=== PATIENT | female | born 1975 ===

== ENCOUNTER 2022-12-13 04:01 | Observation (INO) ==
[2022-12-13] MEDS ORDERED: ACETAMINOPHEN 325 MG TABLET PO PRN (04:04)
[2022-12-13] MEDS ORDERED: ONDANSETRON 4 MG/2 ML VIAL IV PRN ×2 (04:06→12:33)
[2022-12-13] MEDS ORDERED: HYDROcodone/APAP 5/325MG TABLET PO PRN (04:07)
[2022-12-13] MEDS ORDERED: KETOROLAC 30 MG/ML VIAL IV PRN (04:08)
[2022-12-13] MEDS ORDERED: HYDROmorphone 0.5 MG/0.5 ML SYRINGE IV PRN (06:04)
--- NOTE | 2022-12-13 06:09 | Internal Med History&Physical ---
HPI History of Present Illness Patient information: Note initiated : 12/13/22 at 6:05 am Service Date, if different from initiated Date: [] Patient: Cindy Becker 47 y/o F admitted on 12/13/22 for acute Diverticitis, obstructing Stones. Chief Complaint: [] History of present illness: Ms. Becker is a 47 year old female with a history of type 2 diabetes mellitus, rheumatoid arthritis on prednisone methotrexate and Actemra, GERD, obesity who presented to the [facility] for right flank pain and dysuria. The patient was found to have a UTI. A CT abdomen pelvis was performed which showed several right ureteral stones and right hydronephrosis with perinephric stranding. The patient was also noted to have findings suggestive of sigmoid diverticulitis. Urology consult was not available at that hospital therefore the patient was transferred to [facility] for urgent urology evaluation and intervention. Review of systems Constitutional: no fever, fatigue, or weight loss Eyes: no vision changes or pain Cardiovascular: no chest pain, no palpitations Respiratory: no cough or dyspnea Gastrointestinal: Mild left lower quadrant pain, no nausea, vomiting, or diarrhea Genitourinary: Positive for right flank pain and dysuria Musculoskeletal: no arthralgia or myalgia Integumentary: no skin lesion or wound Neurological: no focal weakness or numbness Psychiatric: no anxiety or depression Physical exam Head: Atraumatic, normal inspection. Eyes: normal appearance, no scleral icterus. Neck: full ROM Respiratory: no respiratory distress. Cardiovascular: normal rate and rhythm, S1, S2. GI/Abdominal: Obesely distended, soft, mild tenderness in the left lower quadrant, no rebound. : Positive for right flank tenderness. Extremities: full range of motion, nontender. Neurological: CN II-XII intact, intact motor, intact sensation. Psychiatric: normal mood. Skin: warm, normal color PFSH PFSH All Active Problems (Updated 12/13/22 @ 10:14 by Ronnie Bautista MD) Diabetes mellitus (Acute) Kidney stones (Acute) Rheumatoid arthritis (Acute) Right flank pain (Acute) Right ureteral calculus (Acute) Sigmoid diverticulitis (Acute) Hydronephrosis, right (Acute) Urinary tract infection (Acute) Surgical History (Updated 12/13/22 @ 10:04 by Ronnie Bautista MD) Status post laser lithotripsy of ureteral calculus Social History smoking status: Former smoker MEDS/ALLERGIES Home Medications and Allergies Home Medications Medication Instructions Recorded Confirmed Type atorvastatin 10 mg tablet 10 mg PO QDAY 12/13/22 12/13/22 History cholecalciferol (vitamin D3) 125 125 mcg PO QDAY 12/13/22 12/13/22 History mcg (5,000 unit) capsule fexofenadine 180 mg tablet 180 mg PO QDAY 12/13/22 12/13/22 History glimepiride 4 mg tablet 4 mg PO BID 12/13/22 12/13/22 History hydrocodone 5 mg-acetaminophen 325 1 tab PO Q4 12/13/22 12/13/22 History mg tablet losartan 100 mg tablet 100 mg PO QDAY 12/13/22 12/13/22 History magnesium oxide 400 mg PO QDAY 12/13/22 12/13/22 History tocilizumab 162 mg/0.9 mL mg subcut WEEKLY 12/13/22 History subcutaneous pen injector (Actemra ACTPen) Allergies Allergy/AdvReac Type Severity Reaction Status Date / Time aspirin AdvReac Severe Hives, Verified 12/13/22 05:50 stomach ache codeine AdvReac Severe Hives, Verified 12/13/22 05:50 stomach ache gold sodium thiomalate AdvReac Severe Hives, Verified 12/13/22 05:50 stomach ache EXAM Constitutional Vitals: Temp Pulse Resp BP Pulse Ox O2 Del Method 97.9 F 96 H 15 138/70 97 Room Air 12/13/22 05:10 12/13/22 05:10 12/13/22 05:10 12/13/22 05:10 12/13/22 05:10 12/13/22 05:10 A/P Narrative A/P Narrative: Assessment: 47 year old female with a history of ureteral stone previously treated with lithotripsy, type 2 diabetes mellitus, rheumatoid arthritis, GERD, obesity who presented to the [facility] ED for right flank and suprapubic pain. She was found to have a UTI and several right ureteral stones causing right hydronephrosis and right perinephric stranding seen on CT scan. The CT scan also showed signs of uncomplicated sigmoid diverticulitis. The patient was transferred to [facility] for urgent evaluation by urology and treatment of the UTI. #Complicated urinary tract infection probably pyelonephritis #Obstructing right ureteral stones #Right hydronephrosis #Rheumatoid arthritis on prednisone, methotrexate, and Actemra #Type 2 diabetes mellitus, insulin-dependent #GERD #Uncomplicated sigmoid diverticulitis #History of ureteral stones s/p lithotripsy #Obesity BMI 40 Plan -Ceftriaxone 2 gm IV Q24 hrs. -IV fluid. -UA w/ reflex to culture. -Admission CBC w/ diff and chemistry panel. -Monitor vitals, the patient develops hypotension bolus IV fluids and administer stress dose steroids. -Analgesics as needed. -Lantus 10 units at bedtime and correction Humalog SSI medium dose. -Medication reconciliation, hold Actemra until UTI has been fully treated. -NPO for procedure. -Urology consult. -DVT prophylaxis: Lovenox SQ -CODE STATUS: Full -Disposition: Home when stable. Follow-up with urology in clinic. Time Spent With Patient Time: Total time spent is greater than 50% in coordination of care (as documented) at patient's floor/unit and/or counseling patient:
[2022-12-13] MEDS ORDERED: 0.9 % SODIUM CHLORIDE 1,000 ML IV SCH (06:15)
[2022-12-13] MEDS ORDERED: HYDROmorphone 0.5 MG/0.5 ML SYRINGE ONE (06:39)
[2022-12-13] MEDS ORDERED: DEXTROSE 31 GM ORAL.SUSP PO PRN (07:33)
[2022-12-13] MEDS ORDERED: DEXTROSE 50% 50 ML VIAL IV PRN (07:33)
[2022-12-13 07:34] LABS: Basophils # (Auto) 0.03 K/mcL (0.00-0.30); Basophils % (Auto) 0.3 % (0.0-2.0); Eosinophils # (Auto) 0.36 K/mcL (0.00-0.70); Eosinophils % (Auto) 3.1 % (0.0-7.0); Hematocrit 38.8 % (34.1-44.9); Hemoglobin 11.5 g/dL (11.2-15.7); Lymphocytes % (Auto) 14.4 % (15.5-49.0); Mean Cell Volume 85.5 fL (80.0-100.0); Mean Corpuscular HGB Conc 29.6 g/dL (31.0-36.0); Mean Platelet Volume 11.3 fL (8.8-12.5); Monocytes % (Auto) 4.2 % (1.0-12.0); Neutrophils % (Auto) 77.6 % (38.0-78.0); Platelet Count 257 K/mcL (140-440); RBC 4.54 M/mcL (3.59-5.38); Red Cell Distribution Width 15.6 % (11.5-14.5); WBC 11.8 K/mcL (4.5-11.0)
[2022-12-13] MEDS ORDERED: cefTRIAXone 2 GM in DEXTROSE 5% IN WATER 50 ML IV SCH (08:00)
[2022-12-13 08:01] LABS: ALT/SGPT 27 U/L (<40); AST/SGOT 52 U/L (<32); Albumin 3.7 gm/dL (3.2-5.2); Albumin/Globulin Ratio 1.4 (1.0-2.3); Alkaline Phosphatase 128 U/L (39-117); Bilirubin,Direct < 0.2 mg/dL (0-0.3); Bilirubin,Total 0.5 mg/dL (0.1-1.0); Blood Urea Nitrogen 12 mg/dL (6-20); Calcium 8.9 mg/dL (8.6-10.4); Carbon Dioxide 22 mmol/L (22-30); Chloride 104 mmol/L (96-108); Globulin 2.7 gm/dL (2.2-3.7); Glomerular Filtration Rate 67; Glucose 195 mg/dL (70-105); Lactate Dehydrogenase 254 U/L (135-225); Phosphorous 3.5 mg/dL (2.5-4.5); Triglycerides 286 mg/dL (<150); Uric Acid 3.3 mg/dL (2.5-8.0)
--- NOTE | 2022-12-13 10:15 | Urology Consult Note ---
HPI Date of Consult Consult Date: 12/13/22 Requesting physician: Randolph Bell Consult Narrative Chief complaint: Right flank pain, urinary urgency and frequency dysuria, Reason for consult: Right renal and ureteral stones History of present illness: Cindy is a 47-year-old woman who was seen in the [facility] emergency room last night with complaints of the acute onset of right flank pain, dysuria, and urinary urgency and frequency. Noncontrast CT scan was obtained in the ER at [facility] which revealed 3 adjacent stones within the proximal right ureter measuring 3 mm, 3 mm and 2 mm. There was moderate proximal right hydroureteronephrosis and right perinephric stranding. There were multiple nonobstructing stones in the right upper pole. There were also multiple nonobstructing stones in the left upper pole. There were no bladder stones. Additionally the patient was also diagnosed with acute sigmoid diverticulitis. Labs obtained in the ER revealed a white blood cell count of 12.2. Serum creatinine was within normal limits at 0.9. Urinalysis showed positive nitrites, 49 red blood cells, 85 white blood cells, and few bacteria. There was no urology available for consultation at [facility] and the patient was transferred to our hospital and admitted to our hospitalist service for both diverticulitis and the obstructing stones The patient has a history of diabetes mellitus and rheumatoid arthritis for which she is on medication causing an immunocompromise state. There was concern for pyelonephritis. Today the patient is resting comfortably in bed. She continues to have right flank pain. She looks unwell. She reports a known history of kidney stones. She has previously undergone laser lithotripsy. She lives in [place], [place] and has a urologist at home. Patient was started on Rocephin by the hospitalist service. cc:: CC: Randolph Bell MD Review of Systems All systems: reviewed and no additional remarkable complaints except as stated Constitutional Constitutional: Present fatigue and malaise Genitourinary Genitourinary: Present as per HPI, dysuria, flank pain, urinary frequency and urinary urgency PFSH PFSH All Active Problems (Updated 12/13/22 @ 10:14 by Ronnie Bautista MD) Urinary tract infection (Acute) Hydronephrosis, right (Acute) Sigmoid diverticulitis (Acute) Right ureteral calculus (Acute) Right flank pain (Acute) Rheumatoid arthritis (Acute) Kidney stones (Acute) Diabetes mellitus (Acute) Surgical History (Updated 12/13/22 @ 10:04 by Ronnie Bautista MD) Status post laser lithotripsy of ureteral calculus Social History smoking status: Former smoker Narrative Patient History Narrative: Narrative: Medical/Surgical/Family History All Active Problems (Updated 12/13/22 @ 10:14 by Ronnie Bautista MD) Urinary tract infection (Acute) Hydronephrosis, right (Acute) Sigmoid diverticulitis (Acute) Right ureteral calculus (Acute) Right flank pain (Acute) Rheumatoid arthritis (Acute) Kidney stones (Acute) Diabetes mellitus (Acute) Surgical History (Updated 12/13/22 @ 10:04 by Ronnie Bautista MD) Status post laser lithotripsy of ureteral calculus Social History Smoking Status: Former smoker MEDS/ALLERGIES Home Medications and Allergies Allergies Allergy/AdvReac Type Severity Reaction Status Date / Time aspirin AdvReac Severe Hives, Verified 12/13/22 05:50 stomach ache codeine AdvReac Severe Hives, Verified 12/13/22 05:50 stomach ache gold sodium thiomalate AdvReac Severe Hives, Verified 12/13/22 05:50 stomach ache Physical Examination Vital Signs Vital signs: Temp Pulse Resp BP Pulse Ox O2 Del Method 97.9 F 96 H 15 138/70 97 Room Air 12/13/22 05:10 12/13/22 05:10 12/13/22 05:10 12/13/22 05:10 12/13/22 05:10 12/13/22 05:10 General physical appearance General physical exam: well developed, well nourished, no distress and moderate pain ENT ENT exam: no hearing loss Head Head exam IM: Present atraumatic, normal inspection and normocephalic Neck Neck exam: trachea midline Cardiovascular Cardiovascular exam IM: Present normal rate and rhythm Respiratory Respiratory exam: normal respiratory effort and clear to auscultation Musculoskeletal Musculoskeletal: Present other (Not assessable as the patient is lying in bed) Psychiatric Psychiatric: Present oriented to time, oriented to person, oriented to place and speech is normal Results Labs 12/13/22 06:41 12/13/22 06:41 Labs: Abnormal lab results 12/13/22 12/13/22 Range/Units 06:41 06:41 WBC 11.8 H (4.5-11.0) K/mcL MCH 25.3 L (26.0-34.0) pg MCHC 29.6 L (31.0-36.0) g/dL RDW 15.6 H (11.5-14.5) % Lymph % (Auto) 14.4 L (15.5-49.0) % Absolute Neutrophils 9.15 H (1.80-8.00) K/mcL Glucose 195 H (70-105) mg/dL GGT 85 H (5-36) U/L AST 52 H (<32) U/L Alkaline Phosphatase 128 H (39-117) U/L Lactate Dehydrogenase 254 H (135-225) U/L Triglycerides 286 H (<150) mg/dL Diabetes panel 12/13/22 Range/Units 06:41 Sodium 136 (133-145) mmol/L Potassium 4.0 (3.3-5.1) mmol/L Chloride 104 (96-108) mmol/L Carbon Dioxide 22 (22-30) mmol/L BUN 12 (6-20) mg/dL Creatinine 1.0 (0.6-1.1) mg/dL Glucose 195 H (70-105) mg/dL Calcium 8.9 (8.6-10.4) mg/dL AST 52 H (<32) U/L ALT 27 (<40) U/L Alkaline Phosphatase 128 H (39-117) U/L Total Protein 6.4 (5.9-8.4) gm/dL Albumin 3.7 (3.2-5.2) gm/dL Triglycerides 286 H (<150) mg/dL Calcium panel 12/13/22 Range/Units 06:41 Calcium 8.9 (8.6-10.4) mg/dL Phosphorus 3.5 (2.5-4.5) mg/dL Albumin 3.7 (3.2-5.2) gm/dL Pituitary panel 12/13/22 Range/Units 06:41 Sodium 136 (133-145) mmol/L Potassium 4.0 (3.3-5.1) mmol/L Chloride 104 (96-108) mmol/L Carbon Dioxide 22 (22-30) mmol/L BUN 12 (6-20) mg/dL Creatinine 1.0 (0.6-1.1) mg/dL Glucose 195 H (70-105) mg/dL Calcium 8.9 (8.6-10.4) mg/dL Adrenal panel 12/13/22 Range/Units 06:41 Sodium 136 (133-145) mmol/L Potassium 4.0 (3.3-5.1) mmol/L Chloride 104 (96-108) mmol/L Carbon Dioxide 22 (22-30) mmol/L BUN 12 (6-20) mg/dL Creatinine 1.0 (0.6-1.1) mg/dL Glucose 195 H (70-105) mg/dL Calcium 8.9 (8.6-10.4) mg/dL Total Bilirubin 0.5 (0.1-1.0) mg/dL AST 52 H (<32) U/L ALT 27 (<40) U/L Alkaline Phosphatase 128 H (39-117) U/L Total Protein 6.4 (5.9-8.4) gm/dL Albumin 3.7 (3.2-5.2) gm/dL All other labs normal. Imaging CT scan - abdomen: report reviewed and image reviewed CT scan - pelvis: report reviewed and image reviewed Additional studies: In addition to the above the patient's outside records from [facility] ER and outside labs were reviewed. A/P Assessment and plan (1) Kidney stones: Status: Acute (2) Right flank pain: Status: Acute (3) Right ureteral calculus: Status: Acute (4) Hydronephrosis, right: Status: Acute (5) Urinary tract infection: Status: Acute Narrative A/P Narrative: Cindy is a 47-year-old diabetic woman with rheumatoid arthritis and diabetes. She is on prednisone and methotrexate leading to an immunocompromise state. She has acute sigmoid diverticulitis as well as a urinary tract infection with numerous proximal right ureteral stones with obstruction, right flank pain, proximal ureterectasis and right hydronephrosis. She was started on Rocephin and continues to have right flank pain and urinary symptoms. She lives in [place], [place] and is here visiting family. She has a known history of stones and has a urologist in [place], [place]. There was concern for pyelonephritis and an infected stone. We discussed going to the operating room today for cystoscopy, right retrograde pyelogram, and right ureteral stent placement. We discussed going to the operating room and under general anesthesia, as an out patient, performing cystoscopy, right retrograde pyelogram, and right ureteral stent placement. I discussed the procedure with the patient. We discussed possible risks and side effects including, but not limited to: bleeding, infection, damage to the urethra and to the bladder, damage to the right ureter and right kidney, and postoperative urgency and frequency as well as postoperative hematuria. She understands that due to the presence of infection we will not be treating the stones today. We are simply placing a ureteral stent which she will need to have it removed within 3 months. The stones will need to be treated by her urologist in [place], [place]. We will be happy to treat the stones here should she wish to remain in [facility]. In addition to the risks above there are also small risks of heart attack, stroke and , and risks of anesthesia that the patient will discuss separately with the anesthesia provider prior to the procedure. The patient understands the procedure and its associated risks. Signed consent form was obtained. After right ureteral stent placement the patient may be discharged to home per the hospitalist service. Should she wish to remain in town she should have a follow-up appointment with me in the office in approximately 1 week. Should she wish to have the stones treated by her urologist in [place], [place] she will need to call her urologist to make an appointment and let her urologist know that she had a right ureteral stent placed. I emphasized to her that the stent cannot remain in place long-term and must be removed within 3 months. Time Spent With Patient Time: Total time spent is greater than 50% in coordination of care (as documented) at patient's floor/unit and/or counseling patient: Initial: Total time with patient: 40 - 54 minutes
--- NOTE | 2022-12-13 10:50 | XRay Report ---
INDICATION: preop TECHNIQUE: AP portable semiupright chest x-ray COMPARISON: None FINDINGS: Lungs:Lungs are negative. No focal pulmonary parenchymal infiltrate or mass Heart, vascular:No significant cardiomegaly. Pulmonary vascularity is normal. No pulmonary edema or pulmonary congestion Mediastinum, ángel:No mediastinal widening. No hilar mass Pleura:No pleural fluid. No pleural-based mass or calcification Skeletal:Negative. IMPRESSION: Negative AP chest x-ray Interpreted and Authenticated by: Clive Fraser 12/13/22
[2022-12-13] MEDS ORDERED: IOVERSOL 20 ML VIAL IV ONE (11:01)
[2022-12-13] MEDS ORDERED: LIDOCAINE 2% URO-JET 10 ML JEL.PF.APP UR ONE (11:01)
[2022-12-13] MEDS ORDERED: INSULIN LISPRO 1 UNIT/0.01 ML UNIT SQ SCH (11:30)
[2022-12-13] MEDS ORDERED: SCOPOLAMINE 1 PATCH PATCH TOPICAL ONE (11:44)
[2022-12-13] MEDS ORDERED: MIDAZOLAM 2 MG/2 ML VIAL ONE (11:50)
[2022-12-13] MEDS ORDERED: fentaNYL 100 MCG/2 ML VIAL IV ONE (11:50)
[2022-12-13] MEDS ORDERED: DEXAMETHASONE 10 MG/ML VIAL ONE (11:50)
[2022-12-13] MEDS ORDERED: MAGNESIUM SULFATE 2 GM/50 ML BAG IV ONE (11:50)
[2022-12-13] MEDS ORDERED: ONDANSETRON 4 MG/2 ML VIAL ONE (11:50)
[2022-12-13] MEDS ORDERED: GLYCOPYRROLATE 0.2 MG/ML VIAL IV ONE (11:50)
[2022-12-13] MEDS ORDERED: PROPOFOL 200 MG/20 ML VIAL IV ONE (11:50)
[2022-12-13] MEDS ORDERED: KETAMINE 50 MG/ML Syringe (ANEST) IV ONE (11:50)
[2022-12-13] MEDS ORDERED: methylPREDNISolone SOD SUCC 125 MG/2 ML VIAL ONE (11:50)
[2022-12-13] MEDS ORDERED: LIDOCAINE HCL/PF 100 MG/5 ML SYRINGE IV ONE (11:50)
[2022-12-13 11:56] LABS: HCG,Serum Negative
--- NOTE | 2022-12-13 12:16 | Operative Note ---
Brief Operative Note Date of procedure: 12/13/22 Pre-op diagnosis: Obstructing right ureteral stones and UTI Post-op diagnosis: same Procedure: Cystoscopy, right retrograde pyelogram right ureteral stent placed Grafts/Implants: Yes (6 Salvadorean by 24 cm right ureteral stent with no string) Anesthesia: GLMA Findings: Numerous small stones within the right ureter and kidney. Mild hydronephrosis seen. Complications: none Surgeon: Ronnie Bautista Estimated blood loss (cc): 5 Specimens Removed/Pathology: none sent Condition: stable Disposition: PACU Operative Note Operative Note: After obtaining informed consent from the patient, she was brought to the operating room was placed upon on the operating table. General anesthesia was provided. She was repositioned in a dorsolithotomy position was prepped and draped in usual sterile fashion. Attention was directed to the Reaser meatus where a 21 Salvadorean cystoscope was passed per urethra into the bladder. The bladder inspected and was seen to be free of tumors and stones. Both right and left orifices were identified in normal anatomic positions. The right ureteral orifice was cannulated using a 5 Salvadorean open-end ureteral catheter. A right retrograde pyelogram was performed that showed numerous small stones within the right ureter with mild right hydronephrosis. The open ureteral catheter was removed and a 0.38 Salvadorean sensor wire was passed through the right ureteral orifice and under fluoroscopic guidance into the right upper pole. A 6 Salvadorean by 24 cm right ureteral stent with no string was then passed over the wire and under fluoroscopic guidance into the right kidney. The wire was removed leaving a curl in the right lower pole and a curl within the bladder. The bladder was irrigated and drained. The cystoscope was removed. Lidocaine jelly was placed in urethra in the bladder. The patient was returned to the spine position. She was awake and returned to the recovery in stable condition.
--- NOTE | 2022-12-13 12:32 | XRay Report ---
INDICATION: right retrograde pyelogram TECHNIQUE: Intraoperative fluoroscopy and spot films utilized by Dr. Bautista. 0.7 minutes fluoroscopy and 14.0 mCi exposure used. Right retrograde ureterogram and stent placement performed. IMPRESSION: Intraoperative fluoroscopy and spot films Interpreted and Authenticated by: Clive Fraser 12/13/22
[2022-12-13] MEDS ORDERED: NALOXONE HCL 0.4 MG/ML VIAL IV PRN (12:33)
[2022-12-13] MEDS ORDERED: METHOCARBAMOL 1,000 MG/10 ML VIAL IV PRN (12:33)
[2022-12-13] MEDS ORDERED: METOPROLOL TARTRATE 5 MG/5 ML VIAL IV PRN (12:33)
[2022-12-13] MEDS ORDERED: IPRATROPIUM/ALBUTEROL 3 ML AMPUL.NEB NEB PRN (12:33)
[2022-12-13] MEDS ORDERED: MEPERIDINE 25 MG/ML VIAL IV PRN (12:33)
[2022-12-13] MEDS ORDERED: fentaNYL 100 MCG/2 ML VIAL IV PRN (12:33)
[2022-12-13] MEDS ORDERED: ACETAMINOPHEN 1,000 MG/100 ML BAG IV ONE (12:33)
[2022-12-13] MEDS ORDERED: LABETALOL 5 MG/ML ML IV PRN (12:33)
[2022-12-13] MEDS ORDERED: LACTATED RINGERS 250 ML IV PRN (12:33)
[2022-12-13] MEDS ORDERED: LACTATED RINGERS 1,000 ML IV SCH (12:45)
[2022-12-13] MEDS ORDERED: TOCILIZUMAB 162 MG/0.9 ML SUB-Q SCH (13:17)
[2022-12-13] MEDS ORDERED: [UNRECOGNIZED DRUG - OTHER] SUB-Q SCH (13:17)
--- NOTE | 2022-12-13 15:57 | Discharge Summary ---
Discharge Provider Provider IMPORTANT FOLLOW-UP INFORMATION FOR PCP: Patient information: Note initiated : 12/13/22 at 3:55 pm Service Date, if different from initiated Date: [] Patient: Cindy Becker 47 y/o F admitted on 12/13/22 for acute Diverticitis, obstructing Stones. Chief Complaint: [] Date of admission: 12/13/22 05:02 Discharge date: 12/13/22 COURSE Hospital Course Hospital course: Ms. Becker is a 47 year old female with a history of type 2 diabetes mellitus, rheumatoid arthritis on prednisone methotrexate and Actemra, GERD, obesity who presented to the [facility] for right flank pain and dysuria. The patient was found to have a UTI. A CT abdomen pelvis was performed which showed several right ureteral stones and right hydronephrosis with perinephric stranding. The patient was also noted to have findings suggestive of sigmoid diverticulitis. Urology consult was not available at that hospital therefore the patient was transferred to [facility] for urgent urology evaluation and intervention. The patient was started on Ceftriaxone upon admission to [facility]. Urology was consulted. Dr. Bautista performed a cystoscopy and right retrograde pyelogram and placed a right ureteral stent. Numerous small ureteral stones were removed from the right ureter and right kidney. The patient recovered quickly from anesthesia and requested to discharge to home. She was discharged to home with a prescription for Bactrim for the UTI. No urine culture results available at the time of discharge. The patient will follow up with her Urologist in her home town for stent removal. Physical exam Head: Atraumatic, normal inspection. Eyes: normal appearance, no scleral icterus. Neck: full ROM Respiratory: no respiratory distress. Cardiovascular: normal rate and rhythm, S1, S2. GI/Abdominal: Obesely distended, soft, mild tenderness in the left lower quadrant, no rebound. : Positive for right flank tenderness. Extremities: full range of motion, nontender. Neurological: CN II-XII intact, intact motor, intact sensation. Psychiatric: normal mood. Skin: warm, normal color Discharge diagnosis: Right ureteral stones Secondary discharge diagnosis: Right hydronephrosis Urinary tract infection Immunosuppression due to Actemra, Methotrexate, and Prednisone Rheumatoid arthritis Type 2 diabetes mellitus Time Spent with Patient Time attestation: Total time spent providing and/or coordinating discharge services: Time spent: Less than 30 minutes EXAM Constitutional Vitals: Temp Pulse Resp BP Pulse Ox O2 Del Method O2 Flow Rate 97.2 F 85 16 125/70 97 Room Air 6 12/13/22 15:42 12/13/22 15:42 12/13/22 15:42 12/13/22 15:42 12/13/22 15:42 12/13/22 15:42 12/13/22 12:51 Discharge Data Data Completed and Pending Labs on day of discharge: Labs from last 24 hours 12/13/22 12/13/22 12/13/22 11:05 06:41 06:41 WBC 11.8 H RBC 4.54 Hgb 11.5 Hct 38.8 MCV 85.5 MCH 25.3 L MCHC 29.6 L RDW 15.6 H Plt Count 257 MPV 11.3 Immature Gran % (Auto) 0.4 Neut % (Auto) 77.6 Lymph % (Auto) 14.4 L [place] % (Auto) 4.2 Eos % (Auto) 3.1 Baso % (Auto) 0.3 Lymph # (Auto) 1.70 [place] # (Auto) 0.50 Eos # (Auto) 0.36 Baso # (Auto) 0.03 Immature Gran # 0.05 Absolute Neutrophils 9.15 H Sodium 136 Potassium 4.0 Chloride 104 Carbon Dioxide 22 Anion Gap 10.0 BUN 12 Creatinine 1.0 GFR Calculation 67 Glucose 195 H Uric Acid 3.3 Calcium 8.9 Phosphorus 3.5 Magnesium 1.8 Total Bilirubin 0.5 Direct Bilirubin < 0.2 GGT 85 H AST 52 H ALT 27 Alkaline Phosphatase 128 H Lactate Dehydrogenase 254 H Total Protein 6.4 Albumin 3.7 Globulin 2.7 Albumin/Globulin Ratio 1.4 Triglycerides 286 H HCG, Qual Negative Discharge Plan Patient/Caregiver Discharge Instructions Activity: increase activity as tolerated Diet: Consistent Carbohydrate Prescriptions: New sulfamethoxazole-trimethoprim [Bactrim DS] 800-160 mg tablet 1 tab PO QDAY 5 Days Qty: 5 0RF Continued atorvastatin 10 mg Tablet 10 mg PO QDAY cholecalciferol (vitamin D3) 125 mcg (5,000 unit) Capsule 125 mcg PO QDAY magnesium oxide 400 mg magnesium Tablet 400 mg PO QDAY fexofenadine 180 mg Tablet 180 mg PO QDAY glimepiride 4 mg Tablet 4 mg PO BID losartan 100 mg Tablet 100 mg PO QDAY hydrocodone-acetaminophen 5-325 mg tablet 1 tab PO Q4 Actemra ACTPen 162 mg/0.9 mL pen injector subcut WEEKLY Follow Up Plan Patient Disposition: Home, Self-Care Overall status at discharge: patient is progressing back to baseline Discharge Orders: Discharge Order (Routine); Ordered 12/13/22 Ordered By: Randolph SHEPHERD VTE Deep Vein Thrombosis/Pulmonary Embolism Present on Admission: No
[2022-12-13] MEDS ORDERED: HYDROcodone/APAP 5/325MG TABLET PO SCH (16:00)
[2022-12-13] MEDS ORDERED: GLIMEPIRIDE 2 MG TABLET PO SCH (17:00)
[2022-12-13] MEDS ORDERED: INSULIN GLARGINE, HUMAN 1 UNIT/0.01 ML SQ SCH (21:00)
[2022-12-13] MEDS ORDERED: ENOXAPARIN 40 MG/0.4 ML SYRINGE SQ SCH (21:00)
[2022-12-14] MEDS ORDERED: MAGNESIUM OXIDE 400 MG TABLET PO SCH (09:00)
[2022-12-14] MEDS ORDERED: ATORVASTATIN 10 MG TABLET PO SCH (09:00)
[2022-12-14] MEDS ORDERED: FEXOFENADINE 180 MG TABLET PO SCH (09:00)
[2022-12-14] MEDS ORDERED: LOSARTAN 50 MG TABLET PO SCH (09:00)
[2022-12-14] MEDS ORDERED: VITAMIN D3 125 MCG TABLET PO SCH (09:00)
--- NOTE | 2022-12-15 07:25 | EKG ---
[facility] Test Date: 2022-12-13 Pat Name: Cindy Becker Department: [facility] Room: 107 Gender: Female Apartment Rental Clerk: : 1975 Requested By: Shahid Sanchez Order Number: [id number] Reading MD: Min Asher Measurements Intervals Adrian Rate: 91 P: 25 SC: 145 QRS: 12 QRSD: 104 T: 9 QT: 370 QTc: 455 Interpretive Statements Sinus rhythm Electronically Signed On 12-15-2022 7:25:38 PST by Min Asher /store/M0/[id number]
== END 2022-12-13 16:52 | disposition home or self-care (01) ==
LOC: MEDSUR
PROVIDERS: ADMIT Internal Medicine; ATTEND Internal Medicine